=== PATIENT | male | born 2000 | race African-American/Black ===

== ENCOUNTER 2019-02-08 17:53 | Emergency (ER) | payer BC, MEDICAID ==
[2019-02-08 18:27] VITALS: BP 141/81
--- NOTE | 2019-02-08 19:05 | UC ---
Dental HPI - HPI Summary HPI Summary: 2 DAYS AGO DEVELOPED PAIN IN THE RIGHT LOWER WISDOM TOOTH (#32). THIS MORNING NOTICED SOME SWELLING OF HIS RIGHT LOWER JAW. HAS PAIN WHEN HE EATS ON THE RIGHT SIDE. NO FEVER. - History of Current Complaint Chief Complaint: UCDentalProblem Stated Complaint: TOOTH ACHE Time Seen by Provider: 02/08/19 18:46 Hx Obtained From: Patient Onset/Duration: Gradual Onset, Lasting Days, Still Present Severity: Moderate Pain Intensity: 6 Pain Scale Used: 0-10 Numeric Aggravating Factor(s): Chewing Alleviating Factor(s): Nothing - Allergies/Home Medications Allergies/Adverse Reactions: Allergies Allergy/AdvReac Type Severity Reaction Status Date / Time No Known Allergies Allergy Verified 02/08/19 18:27 Home Medications: Home Medications Naproxen Sodium [Aleve] 1 tab PO ONCE 02/08/19 [History Confirmed 02/08/19] PMH/Surg Hx/FS Hx/Imm Hx Previously Healthy: Yes - Surgical History Surgical History: None - Family History Known Family History: Positive: Non-Contributory - Social History Alcohol Use: None Substance Use Type: None Smoking Status (MU): Never Smoked Tobacco Review of Systems All Other Systems Reviewed And Are Negative: Yes Constitutional: Positive: Negative ENT: Positive: Dental Pain Respiratory: Positive: Negative Cardiovascular: Positive: Negative Gastrointestinal: Positive: Negative Physical Exam Triage Information Reviewed: Yes Appearance: Well-Appearing, No Pain Distress, Well-Nourished Vital Signs: Initial Vital Signs Temp 98.4 F 02/08/19 18:25 Pulse 89 02/08/19 18:25 Resp 18 02/08/19 18:25 BP 141/81 02/08/19 18:25 Pulse Ox 100 02/08/19 18:25 Vital Signs Reviewed: Yes Eyes: Positive: Conjunctiva Clear ENT: Positive: Hearing grossly normal, Pharynx normal Dental: Positive: Abscess @ - #32. OOZING PUS Neck: Positive: Supple, Nontender, No Lymphadenopathy Respiratory: Positive: No respiratory distress, No accessory muscle use Cardiovascular: Positive: Pulses Normal Abdomen Description: Positive: Soft Musculoskeletal: Positive: No Edema Neurological: Positive: Alert Psychological: Positive: Age Appropriate Behavior Skin: Negative: Rashes Dental Complaint Course/Dx - Course Course Of Treatment: DEFINITE ABSCESS RIGHT LOWER WISDOM TOOTH. PUS EXPRESSED. AUGMENTIN. PERIDEX MOUTH RINSE. VICODIN. FOLLOW-UP WITH DENTIST. 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 Reference #: [id number] - Differential Dx/Diagnosis Provider Diagnosis: Dental abscess Discharge - Sign-Out/Discharge Documenting (check all that apply): Patient Departure All imaging exams completed and their final reports reviewed: No Studies - Discharge Plan Condition: Stable Disposition: HOME Prescriptions: Amoxicillin/Clavulanate TAB* [Augmentin TAB 875*] 875 mg PO BID #19 tab Chlorhexidine MW 0.12% 473ML* [Peridex Mouth Wash 0.12%*] 15 ml SWISH SPIT BID # 1 bottle HYDROcodone/ACETAMIN 5-325 MG* [Dennison 5-325 TAB*] 1 tab PO Q6H PRN #15 tab MDD 4 PRN Reason: Pain Patient Education Materials: Dental Abscess (ED) Referrals: Maxx Kramer MD [Primary Care Provider] - If Needed Additional Instructions: TAKE THE ANTIBIOTICS FOR THE FULL COURSE. RINSE YOUR MOUTH WITH WATER AFTER EATING OR DRINKING ANYTHING. ANTISEPTIC MOUTH RINSE TWICE DAILY. OTC MEDS NEEDED FOR DISCOMFORT. HYDROCODONE FOR BREAKTHROUGH. FOLLOW-UP WITH A DENTIST ANNAMARIA. IBUPROFEN MAX DOSE: 600MG (3 TABS) EVERY 6 HRS OR 800MG (4 TABS) EVERY 8 HRS OR NAPROXEN MAX DOSE: 440MG (2 TABS) EVERY 12 HRS TYLENOL MAX DOSE: 1000MG (2 EXTRA STRENGTH TABS) EVERY 8 HRS OR 650MG (2 REGULAR TABS) EVERY 6 HRS - Billing Disposition and Condition Condition: STABLE Disposition: Home
[2019-02-08] MEDS ORDERED: Amoxicillin/Clavulanate TAB* 875 MG PO ONE (19:16)
[2019-02-08] MEDS ORDERED: HYDROcodone/ACETAMIN 5-325 MG* 1 TAB PO ONE (19:16)
== END 2019-02-08 19:25 | disposition home or self-care (01) ==
LOC: UCEAST 17:53
DX: K04.7 Periapical abscess without sinus (principal)
CPT/HCPCS: 99202; A9270-GY; G0463

== ENCOUNTER 2019-03-19 08:22 | Emergency (ER) | payer BC ==
[2019-03-19 08:42] VITALS: BP 132/74
--- NOTE | 2019-03-19 10:07 | UC ---
Hand/Wrist HPI - HPI Summary HPI Summary: ABOUT 3 WEEKS OF LEFT WRIST PAIN WITH MOVEMENT. 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 NO NUMBNESS OR TINGLING. - History Of Current Complaint Chief Complaint: UCUpperExtremity Stated Complaint: LT WRIST INJURY Time Seen by Provider: 03/19/19 09:26 Hx Obtained From: Patient Onset/Duration: Gradual Onset, Lasting Weeks, Still Present Severity Initially: Moderate Severity Currently: Moderate Pain Intensity: 6 Pain Scale Used: 0-10 Numeric Character Of Pain: Sharp Aggravating Factor(s): Movement Alleviating Factor(s): Rest Associated Signs And Symptoms: Negative: Swelling, Redness, Bruising, Numbness/ Tingling Related History: Dominant Hand Right - Allergies/Home Medications Allergies/Adverse Reactions: Allergies Allergy/AdvReac Type Severity Reaction Status Date / Time No Known Allergies Allergy Verified 03/19/19 08:42 Home Medications: Home Medications NK [No Home Medications Reported] 03/19/19 [History Confirmed 03/19/19] PMH/Surg Hx/FS Hx/Imm Hx Previously Healthy: Yes - Surgical History Surgical History: None - Family History Known Family History: Positive: Non-Contributory - Social History Alcohol Use: None Substance Use Type: None Smoking Status (MU): Never Smoked Tobacco Review of Systems All Other Systems Reviewed And Are Negative: Yes Constitutional: Positive: Negative Skin: Positive: Negative Respiratory: Positive: Negative Cardiovascular: Positive: Negative Gastrointestinal: Positive: Negative Musculoskeletal: Positive: Arthralgia, Decreased ROM Physical Exam Triage Information Reviewed: Yes Appearance: Well-Appearing, No Pain Distress, Well-Nourished Vital Signs: Initial Vital Signs Temp 97.9 F 03/19/19 08:36 Pulse 64 03/19/19 08:36 Resp 18 03/19/19 08:36 BP 132/74 03/19/19 08:36 Pulse Ox 100 03/19/19 08:36 Vital Signs Reviewed: Yes Eyes: Positive: Conjunctiva Clear ENT: Positive: Hearing grossly normal Neck: Positive: Supple Respiratory: Positive: No respiratory distress, No accessory muscle use Cardiovascular: Positive: Pulses Normal Abdomen Description: Positive: Soft Musculoskeletal: Positive: No Edema, ROM Limited @ - LEFT WRIST., Other: - NO BONY TENDERNESS LEFT WRIST. PAIN WITH RADIAL DEVIATION Neurological: Positive: Alert Psychological: Positive: Age Appropriate Behavior Skin: Negative: Rashes Diagnostics - Radiology LEFT WRIST XRAYS Radiology Interpretation Completed By: Radiologist Summary of Radiographic Findings: NO FRACTURE OF THE WRIST IS NOTED. Hand/Wrist Course/Dx - Differential Dx/Diagnosis Provider Diagnosis: Tendinitis of left wrist Discharge - Sign-Out/Discharge Documenting (check all that apply): Patient Departure All imaging exams completed and their final reports reviewed: Yes - Discharge Plan Condition: Stable Disposition: HOME Patient Education Materials: Tendinitis (ED) Referrals: Doug Bonilla MD [Medical Doctor] - If Needed Maxx Kramer MD [Primary Care Provider] - If Needed Additional Instructions: XRAY TODAY NEGATIVE FOR FRACTURE OR DISLOCATION. SUSPECT TENDONITIS FROM OVERUSE. WEAR THE WRIST SPLINT AT NIGHT AND DURING THE DAY ABLE. IF YOU DO NOT IMPROVE OVER THE NEXT SEVERAL WEEKS FOLLOW-UP WITH YOUR PCP OR ORTHO. YOU MAY BENEFIT FROM REPEAT/MORE ADVANCED IMAGING AT THAT TIME. OTC IBUPROFEN OR ALEVE NEEDED FOR DISCOMFORT. REST, ICE, ELEVATE. BE SURE TO GO THROUGH SLOW RANGE OF MOTION AND STRETCHING EXERCISES DAILY YOU ARE ABLE TO PREVENT STIFFENING UP AND MAKING THE DISCOMFORT WORSE. - Billing Disposition and Condition Condition: STABLE Disposition: Home
== END 2019-03-19 10:18 | disposition home or self-care (01) ==
LOC: UCEAST 08:22
DX: M77.9 Enthesopathy, unspecified (principal); M25.532 Pain in left wrist
CPT/HCPCS: 99212; G0463

== ENCOUNTER 2019-07-07 15:36 | Emergency (ER) | payer BC ==
[2019-07-07 16:21] VITALS: BP 118/63
--- NOTE | 2019-07-07 16:40 | UC ---
Lower Extremity/Ankle HPI - HPI Summary HPI Summary: 19-year-old male presents for ingrown toenail to the right great toe for past week. States the pain and swelling have worsened over the past 2 days. Has had ingrown toenails in the past but they have improved on their own without intervention. Denies fever, chills, drainage, numbness, or tingling. - History of Current Complaint Chief Complaint: UCLowerExtremity Stated Complaint: INGROWN TOENAIL Time Seen by Provider: 07/07/19 16:21 Hx Obtained From: Patient Pain Intensity: 7 - Allergies/Home Medications Allergies/Adverse Reactions: Allergies Allergy/AdvReac Type Severity Reaction Status Date / Time No Known Allergies Allergy Verified 03/19/19 08:42 PMH/Surg Hx/FS Hx/Imm Hx Previously Healthy: Yes - Denies significant PMH - Surgical History Surgical History: None - Family History Known Family History: Positive: Non-Contributory - Social History Occupation: Employed Full-time Lives: With Family Alcohol Use: Weekly Substance Use Type: None Smoking Status (MU): Never Smoked Tobacco Review of Systems All Other Systems Reviewed And Are Negative: Yes Constitutional: Negative: Fever, Chills Skin: Positive: Other - See HPI Respiratory: Positive: Negative Cardiovascular: Positive: Negative Gastrointestinal: Positive: Negative Genitourinary: Positive: Negative Musculoskeletal: Positive: Negative Neurological: Positive: Negative Is Patient Immunocompromised?: No Physical Exam - Summary Physical Exam Summary: GENERAL APPEARANCE: Well developed, well nourished, alert and cooperative, and appears to be in no acute distress. CARDIAC: Normal S1 and S2. No S3, S4 or murmurs. Rhythm is regular. There is no peripheral edema, cyanosis or pallor. Extremities are warm and well perfused. Capillary refill is less than 2 seconds. Peripheral pulses intact. LUNGS: Clear to auscultation without rales, rhonchi, wheezing or diminished breath sounds. ABDOMEN: Positive bowel sounds. Soft, nondistended, nontender. No guarding or rebound. No masses or hepatosplenomegally. MUSKULOSKELETAL: ROM intact to all extremities. No joint erythema or tenderness. Normal muscular development. Limping gait. EXTREMITIES: Ingrown toenail to the right great toe with mild redness, edema, and tenderness to the lateral nailfold without induration, fluctuance, or drainage. SKIN: Skin normal color, texture and turgor. Triage Information Reviewed: Yes Vital Signs: Initial Vital Signs Temp 98.6 F 07/07/19 16:17 Pulse 65 07/07/19 16:17 Resp 16 07/07/19 16:17 BP 118/63 07/07/19 16:17 Pulse Ox 100 07/07/19 16:17 Vital Signs Reviewed: Yes Lower Extremity Course/Dx - Course Course Of Treatment: 19-year-old male presents for ingrown toenail to the right great toe for past week. States the pain and swelling have worsened over the past 2 days. Has had ingrown toenails in the past but they have improved on their own without intervention. Denies fever, chills, drainage, numbness, or tingling. Afebrile. VSS. Patient had an ingrown toenail to the right great toe with mild redness, edema, and tenderness to the lateral nailfold without induration, fluctuance, or drainage. Remainder of exam was unremarkable. Will treat for infected ingrown toenail with cephalexin 500 mg 1 capsule 4 times a day for 7 days, OTC analgesics, as well as soaks in warm water and Epsom salt solution. He is to follow up with podiatry in 3-5 days for further evaluation and treatment. Anticipatory guidance and warning symptoms reviewed with patient. Verbalizes understanding and agrees with POC. - Differential Dx/Diagnosis Differential Diagnosis/HQI/PQRI: Cellulitis, Infection, Other - Ingrown toenail Provider Diagnosis: Ingrown toenail of right foot with infection Discharge - Sign-Out/Discharge Documenting (check all that apply): Patient Departure All imaging exams completed and their final reports reviewed: No Studies - Discharge Plan Condition: Stable Disposition: HOME Prescriptions: cephALEXin [Keflex] 500 mg PO QID #28 capsule Patient Education Materials: Ingrown Nail (ED) Referrals: Maxx Kramer MD [Primary Care Provider] - Brodie Aden DPM [Doctor of Podiatric Medicine] - 3 Days (Call for appointment.) Additional Instructions: You have an ingrown toenail that has become infected. We will start you on an antibiotic to treat for the infection. Start cephalexin 500 mg 1 capsule four times a day for 7 days. Soak your foot in a warm water and Epsom salt solution at least 3-4 times a day. Take acetaminophen (Tylenol) or ibuprofen (Advil, Motrin) according to directions as needed for pain. Follow up with podiatry in 3-5 days for further evaluation and treatment. Call for appointment. Seek immediate medical attention in the emergency room if you develop fever greater than 100.5 F, have severe pain that is not managed with over the counter pain medicine, redness that spreads, swelling of the toe, or any worsening of symptoms. - Billing Disposition and Condition Condition: STABLE Disposition: Home
== END 2019-07-07 16:57 | disposition home or self-care (01) ==
LOC: UCEAST 15:36
DX: L60.0 Ingrowing nail (principal); L08.9 Local infection of the skin and subcutaneous tissue, unspecified
CPT/HCPCS: 99212; G0463

== ENCOUNTER 2019-07-10 14:57 | Emergency (ER) | payer BC ==
--- NOTE | 2019-07-10 15:50 | ED ---
Lower Extremity - HPI Summary HPI Summary: 19 yr old with right great toe paronychia. Onset a week ago. Seen here a couple of days ago. GOt the keflex filled but he has not taken any yet. No fever or chills. He came in because the swelling we a little worse. He has some drainage from the area. - History of Current Complaint Chief Complaint: UCLowerExtremity Stated Complaint: RT TOE INJURY Time Seen by Provider: 07/10/19 15:41 Pain Intensity: 7 - Allergies/Home Medications Allergies/Adverse Reactions: Allergies Allergy/AdvReac Type Severity Reaction Status Date / Time No Known Allergies Allergy Verified 07/10/19 15:23 PMH/Surg Hx/FS Hx/Imm Hx Endocrine/Hematology History: Denies: Hx Diabetes, Hx Thyroid Disease Cardiovascular History: Denies: Hx Hypertension Respiratory History: Denies: Hx Asthma, Hx Chronic Obstructive Pulmonary Disease (COPD) GI History: Denies: Hx Ulcer Infectious Disease History: No Infectious Disease History: Denies: Hx Hepatitis, Hx Human Immunodeficiency Virus (HIV), Traveled Outside the in Last 30 Days - Family History Known Family History: Positive: None, Non-Contributory - Social History Occupation: Employed Full-time Alcohol Use: Weekly Substance Use Type: Reports: None Smoking Status (MU): Never Smoked Tobacco Review of Systems Constitutional: Negative Positive: Other - right great toe pain All Other Systems Reviewed And Are Negative: Yes Physical Exam Triage Information Reviewed: Yes Vital Signs On Initial Exam: Initial Vitals Temp Pulse Resp BP Pulse Ox 98.4 F 59 16 109/59 100 07/10/19 15:19 07/10/19 15:19 07/10/19 15:19 07/10/19 15:19 07/10/19 15:19 Vital Signs Reviewed: Yes Appearance: Positive: Well-Appearing, No Pain Distress Skin: Positive: Other - right great toe with paronychia lateral skin fold some drainage, no fluctuance and no bone tenderness. No foot cellulitis. Eyes: Positive: EOMI ENT: Positive: Normal ENT inspection Neck: Positive: Nontender Respiratory/Lung Sounds: Positive: Clear to Auscultation, Breath Sounds Present Cardiovascular: Positive: RRR, Pulses are Symmetrical in both Upper and Lower Extremities Abdomen Description: Negative: Distended Musculoskeletal: Positive: Strength/ROM Intact Neurological: Positive: Sensory/Motor Intact, Alert, Oriented to Person Place, Time, CN Intact II-III Psychiatric: Positive: Normal Diagnostics - Vital Signs Vital Signs Temp Pulse Resp BP Pulse Ox 07/10/19 15:19 98.4 F 59 16 109/59 100 - Laboratory Lab Statement: Any lab studies that have been ordered have been reviewed, and results considered in the medical decision making process. Lower Extremity Course/Dx - Course Course Of Treatment: 19yr old with paronychia. He will start taking his keflex and continue warm soaks. FU with PMD. - Diagnoses Provider Diagnoses: Paronychia of great toe, right Discharge - Sign-Out/Discharge Documenting (check all that apply): Patient Departure All imaging exams completed and their final reports reviewed: No Studies - Discharge Plan Condition: Good Disposition: HOME Patient Education Materials: Paronychia (ED) Referrals: Maxx Kramer MD [Primary Care Provider] - 3 Days Additional Instructions: Please take the antibiotic you have already been prescribed. - Billing Disposition and Condition Condition: GOOD Disposition: Home
[2019-07-11 00:05] VITALS: BP 109/59
== END 2019-07-10 15:57 | disposition home or self-care (01) ==
LOC: UCEAST 14:57
DX: L03.031 Cellulitis of right toe (principal)
CPT/HCPCS: 99211; G0463

== ENCOUNTER 2019-10-13 07:17 | Emergency (ER) | payer BC ==
[2019-10-13 07:30] VITALS: BP 120/68
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
== END 2019-10-13 08:05 | disposition home or self-care (01) ==
LOC: UCEAST 07:17
DX: S60.221A Contusion of right hand, initial encounter (principal); W20.8XXA Other cause of strike by thrown, projected or falling object, initial encounter; Y92.9 Unspecified place or not applicable
CPT/HCPCS: 99211; G0463